=== PATIENT | male | born 1965 | race Caucasian/White ===

== ENCOUNTER 2018-01-26 09:32 | Day surgery (SDC) | payer MEDICAID ==
[~2018-01-26] VITALS: Ht 167.6 cm; Wt 72.0 kg
[2018-01-26 10:05] VITALS: BP 117/69
[2018-01-26] MEDS ORDERED: ONDA4TAB9 SL (10:05)
[2018-01-26] MEDS ORDERED: IBUP-1986 PO (10:05)
[2018-01-26] MEDS ORDERED: HYDR-3965 PO (10:05)
[2018-01-26 10:20] LABS: BASOPHILS # (AUTO) 0.1 X10'3 (0-0.2); BASOPHILS % (AUTO) 0.8 % (0-1); EOSINOPHILS # (AUTO) 0.1 X10'3 (0-0.9); EOSINOPHILS % (AUTO) 1.1 % (0-6); LYMPHOCYTES # (AUTO) 1.9 X10'3 (1.1-4.8); LYMPHOCYTES % (AUTO) 16.3 % (21-51); MEAN CORPUSCULAR HEMOGLOBIN 28.9 PG (27.0-31.0); MEAN CORPUSCULAR HGB CONC 32.8 % (33.0-36.5); MEAN CORPUSCULAR VOLUME 88.3 FL (78-98); MEAN PLATELET VOLUME 7.3 FL (7.4-10.4); MONOCYTES # (AUTO) 1.1 X10'3 (0-0.9); MONOCYTES % (AUTO) 9.7 % (2-12); NEUTROPHILS # (AUTO) 8.4 X10'3 (1.8-7.7); NEUTROPHILS % (AUTO) 72.1 % (42-75); PRE OP HEMATOCRIT 39.6 % (42.0-52.0); PRE OP PLATELET COUNT 488 X10'3 (140-440); RED BLOOD COUNT 4.48 X10'6 (4.70-6.10); RED CELL DISTRIBUTION WIDTH 15.2 % (11.5-14.5)
[2018-01-26] MEDS ORDERED: normal saline 1000ml 1,000 ML IV PRN (10:20)
[2018-01-26 10:28] LABS: ALBUMIN 3.2 G/DL (3.4-5.0); ANION GAP 10 (8-16); BLOOD UREA NITROGEN 8 MG/DL (7-18); BUN/CREATININE RATIO 12.5 (5.4-32.0); CHLORIDE 103 MMOL/L (99-107); CREATININE 0.64 MG/DL (0.60-1.10); GLUCOSE 105 MG/DL (70-104); SODIUM 140 MMOL/L (135-145); TOTAL CARBON DIOXIDE 27.1 MMOL/L (24-32); eGFR > 90 ML/MIN
[2018-01-26] MEDS ORDERED: fentaNYL/PF 50MCG/1 ML 2ML syringe IV PRN (10:55)
[2018-01-26] MEDS ORDERED: heparin sodium, porcine/PF 100unit/ml 5ML syringe ICATH ONE (10:55)
[2018-01-26] MEDS ORDERED: LIDOcaine 1%/PF 5ML 10 MG/ML VIAL SQ ONE (10:55)
[2018-01-26] MEDS ORDERED: midazolam 2 mg/2 ml injection IV PRN (10:55)
[2018-01-26] MEDS ORDERED: LIDOcaine 1%/PF 5ML 10 MG/ML VIAL ONE (11:07)
[2018-01-26] MEDS ORDERED: fentaNYL/PF 50MCG/1 ML 2ML syringe ONE (11:09)
[2018-01-26] MEDS ORDERED: midazolam 2 mg/2 ml injection ONE (11:09)
[2018-01-26] MEDS ORDERED: heparin sodium, porcine/PF 100unit/ml 5ML syringe ONE (11:09)
[2018-01-26 12:00] VITALS: BP 124/85
[2018-01-26 12:15] VITALS: BP 133/88
[2018-01-26 12:30] VITALS: BP 130/87
[2018-01-26 12:45] VITALS: BP 127/86
[2018-01-26 13:00] VITALS: BP 119/83
== END 2018-01-26 13:10 | disposition home or self-care (01) ==
LOC: SSTAY O 09:32
PROVIDERS: ATTEND Radiology Diagnostic Radiology
DX: C02.3 Malignant neoplasm of anterior two-thirds of tongue, part unspecified (principal); F17.210 Nicotine dependence, cigarettes, uncomplicated; Z72.89 Other problems related to lifestyle; Z79.1 Long term (current) use of non-steroidal anti-inflammatories (NSAID); Z86.69 Personal history of other diseases of the nervous system and sense organs; Z79.891 Long term (current) use of opiate analgesic; Z93.1 Gastrostomy status; Z98.890 Other specified postprocedural states; Z79.899 Other long term (current) drug therapy
CPT/HCPCS: 36415; 36561; 76937; 77001; 80048; 85025; 85610; 99152; 99153; A6219; C1788; C1894; J1642; J2001; J2250; J3010; J7030

== ENCOUNTER 2018-07-08 08:50 | Day surgery (SDC) | payer MEDICAID ==
[~2018-07-08] VITALS: Ht 170.2 cm; Wt 72.0 kg
[~2018-07-08 08:50] MED LIST: HYDR-3965 PO; IBUP-1986 PO; ONDA4TAB9 SL
[2018-07-08 09:17] VITALS: BP 105/81
[2018-07-08] MEDS ORDERED: LIDOcaine 1%/PF 5ML 10 MG/ML VIAL ONE (10:29)
[2018-07-08] MEDS ORDERED: iohexol 300 MG/1 ML 50ml polymer ONE (10:33)
[2018-07-08 11:08] VITALS: BP 133/87
== END 2018-07-08 11:30 | disposition home or self-care (01) ==
LOC: SSTAY O 08:50
PROVIDERS: ATTEND Radiology Diagnostic Radiology
DX: K94.23 Gastrostomy malfunction (principal); C02.9 Malignant neoplasm of tongue, unspecified; Z79.899 Other long term (current) drug therapy
CPT/HCPCS: 49450; J2001; Q9967; B4088; C1769

== ENCOUNTER 2018-08-19 12:56 | Outpatient (CLI) | payer MEDICAID ==
[~2018-08-19 12:56] MED LIST changes: -ONDA4TAB9 SL
== END 2018-08-19 23:59 | disposition home or self-care (01) ==
LOC: RAD 12:56
PROVIDERS: ATTEND Internal Medicine Nephrology
DX: C02.9 Malignant neoplasm of tongue, unspecified (principal); F14.10 Cocaine abuse, uncomplicated; Z87.891 Personal history of nicotine dependence; Z72.89 Other problems related to lifestyle; Z92.3 Personal history of irradiation
CPT/HCPCS: 74230

== ENCOUNTER 2020-01-18 11:05 | Day surgery (SDC) | payer MEDICAID ==
[~2020-01-18] VITALS: Ht 170.2 cm; Wt 77.1 kg
[2020-01-18] MEDS ORDERED: NO HOME MEDS (11:30)
[2020-01-18 11:50] VITALS: BP 112/79
[2020-01-18] MEDS ORDERED: LIDOcaine 1%/PF 5ML 10 MG/ML VIAL ONE (13:49)
[2020-01-18 14:20] VITALS: BP 110/68
[2020-01-18] MEDS ORDERED: FLU VACC QS2020-21(6MOS UP)/PF 60 MCG/0.5 ML SYRINGE IMVAC ONE (14:40)
[2020-01-18 14:50] VITALS: BP 101/64
== END 2020-01-18 15:00 | disposition home or self-care (01) ==
LOC: SSTAY O 11:05
PROVIDERS: ATTEND Radiology Diagnostic Radiology
DX: Z45.2 Encounter for adjustment and management of vascular access device (principal)
CPT/HCPCS: 36590

== ENCOUNTER 2020-05-17 12:35 | Outpatient (CLI) | payer MEDICAID ==
[~2020-05-17 12:35] MED LIST changes: -HYDR-3965 PO; -IBUP-1986 PO; +NO HOME MEDS
== END 2020-05-17 23:59 | disposition home or self-care (01) ==
LOC: RAD 12:35
PROVIDERS: ATTEND Internal Medicine Hematology & Oncology
DX: C02.3 Malignant neoplasm of anterior two-thirds of tongue, part unspecified (principal); R13.12 Dysphagia, oropharyngeal phase; R47.1 Dysarthria and anarthria; Z85.89 Personal history of malignant neoplasm of other organs and systems
CPT/HCPCS: 74230